=== PATIENT | male | born 1990 | race Caucasian/White ===

== ENCOUNTER 2017-07-28 21:56 | Emergency (ER) | payer SELFPAY | END 2017-07-28 22:35 | disposition home or self-care (01) | LOC: ER 22:35 | DX: S60.021A Contusion of right index finger without damage to nail, initial encounter (principal); W23.0XXA Caught, crushed, jammed, or pinched between moving objects, initial encounter; Y93.89 Activity, other specified; Y92.89 Other specified places as the place of occurrence of the external cause; Y99.8 Other external cause status | CPT/HCPCS: 29130; 73140; 99284 ==

== ENCOUNTER 2019-03-15 19:33 | Emergency (ER) | payer OTHER ==
[~2019-03-15] VITALS: Ht 175.3 cm; Wt 99.8 kg
[~2019-03-15 19:33] MED LIST: AMOX1TAB61 PO; PRED20TA PO; TRAM50TA PO
[2019-03-15 19:55] VITALS: BP 138/101
[2019-03-15] MEDS ORDERED: PRED50TA PO (20:16)
[2019-03-15] MEDS ORDERED: AMOX875T PO (20:16)
[2019-03-15] MEDS ORDERED: BENZ100C PO (20:16)
[2019-03-15] MEDS ORDERED: VENTOLIN HFA18 GM INH (20:16)
--- NOTE | 2019-03-15 20:16 | PHYS DOC ---
Past Medical History Past Medical History: No Pertinent History (JOSE ROSARIO APRN) Past Surgical History: No Surgical History (JOSE ROSARIO APRN) Alcohol Use: Occasionally Drug Use: None (JOSE ROSARIO APRN) Attending Signature I have participated in the care of this patient and I have reviewed and agree with all pertinent clinical information above including history, exam, and recommendations. (MICHELLE DA SILVA MD) Adult General Chief Complaint Chief Complaint: Congestion HPI HPI Patient is a 28 year old male with history of smoking who presents to the ED today complaining of cough and nasal congestion, symptoms began 2 weeks ago. Patient is complaining of moderate bilateral ear pain worse on the right side that began yesterday. Patient denies any fever, denies any chest pain or shortness of breath. He reports he has been trying [id number] remedies with no relief. (JOSE ROSARIO APRN) Review of Systems Review of Systems Constitutional: Denies fever or chills [] Eyes: Denies change in visual acuity, redness, or eye pain [] HENT: Reports nasal congestion and bilateral ear pain Respiratory: Reports cough, denies shortness of breath [] Cardiovascular: No additional information not addressed in HPI [] GI: Denies abdominal pain, nausea, vomiting, bloody stools or diarrhea [] : Denies dysuria or hematuria [] Musculoskeletal: Denies back pain or joint pain [] Integument: Denies rash or skin lesions [] Neurologic: Denies headache, focal weakness or sensory changes [] All other systems were reviewed and found to be within normal limits, except as documented in this note. (JOSE ROSARIO APRN) Allergies Allergies Allergies Coded Allergies Type Severity Reaction Last Updated Verified No Known Drug Allergies 10/10/13 No (MICHELLE DA SILVA MD) Physical Exam Physical Exam Constitutional: Well developed, well nourished, no acute distress, non-toxic appearance. [] HENT: Normocephalic, atraumatic, bilateral external ears normal, oropharynx moist, no oral exudates, nose normal. [] Bilateral TM are moderately injected right worse with effusion. Eyes: PERRLA, EOMI, conjunctiva normal, no discharge. [] Neck: Normal range of motion, no tenderness, supple, no stridor. [] Cardiovascular:Heart rate regular rhythm, no murmur [] Lungs & Thorax: Bilateral breath sounds clear to auscultation [] Abdomen: Bowel sounds normal, soft, no tenderness, no masses, no pulsatile masses. [] Skin: Warm, dry, no erythema, no rash. [] Back: No tenderness, no CVA tenderness. [] Extremities: No tenderness, no cyanosis, no clubbing, ROM intact, no edema. [] Neurologic: Alert and oriented X 3, normal motor function, normal sensory function, no focal deficits noted. [] Psychologic: Affect normal, judgement normal, mood normal. [] (JOSE ROSARIO APRN) Current Patient Data Vital Signs Vital Signs Date Time Temp Pulse Resp B/P (MAP) Pulse Ox O2 Delivery O2 Flow Rate FiO2 03/15/19 19:55 98.3 85 18 138/101 (113) 97 Room Air 98.3 (MICHELLE DA SILVA MD) EKG EKG [] (JOSE ROSARIO APRN) Radiology/Procedures Radiology/Procedures [] (JOSE ROSARIO APRN) Course & Med Decision Making Course & Med Decision Making Pertinent Labs and Imaging studies reviewed. (See chart for details) This is a 28-year-old male patient presented to the ED today with otitis media with effusion, bronchitis, and URI. Patient was advised to consider smoking cessation. Discharged with amoxicillin, prednisone for 5 days, Tessalon Perles, and albuterol inhaler. Follow-up with primary care doctor in 1-2 weeks. (JOSE ROSARIO APRN) Dragon Disclaimer Dragon Disclaimer This electronic medical record was generated, in whole or in part, using a voice recognition dictation system. (JOSE ROASRIO APRN) Departure Departure Impression: Primary Impression: Acute otitis media with effusion of right ear Additional Impressions: Smoking addiction URI (upper respiratory infection) Bronchitis Disposition: 01 HOME, SELF-CARE Condition: STABLE Referrals: NO PCP (PCP) follow up with your doctor next week Patient Instructions: Acute Bronchitis, [id number], Otitis Media, Adult, Smoking Cessation Additional Instructions: You were seen in the emergency room with ear infection, bronchitis and an upper respiratory infection. Use the prescribed medications as ordered. Consider smoking cessation. Follow-up with your doctor in 1-2 weeks. Scripts Amoxicillin (AMOXICILLIN) 875 Mg Tablet 1 TAB PO BID, #20 TAB Prov: MUTJOSE RUSH EFREN 03/15/19 Benzonatate (TESSALON PERLE) 100 Mg Capsule 1 CAP PO TID, #30 CAP Prov: JOSE ROSARIO EFREN 03/15/19 Prednisone (PREDNISONE) 50 Mg Tablet 1 TAB PO DAILY, #5 TAB Prov: KOKOJOSE RUSH EFREN 03/15/19 Albuterol Sulfate (VENTOLIN HFA INHALER) 18 Gm Hfa.aer.ad 2 PUFF INH Q4HRS for FOR ASTHMA, #1 INHALER 0 Refills Prov: JOSE ROSARIO EFREN 03/15/19 Problem Qualifiers Additional Impressions: URI (upper respiratory infection) URI type: unspecified URI Qualified Codes: J06.9 - Acute upper respiratory infection, unspecified JOSE ROSARIO EFREN Mar 15, 2019 20:16 MICHELLE DA SILVA MD Mar 16, 2019 04:27
== END 2019-03-15 20:30 | disposition home or self-care (01) ==
LOC: ER 19:33
DX: J40 Bronchitis, not specified as acute or chronic (principal); H65.191 Other acute nonsuppurative otitis media, right ear; F17.200 Nicotine dependence, unspecified, uncomplicated; J06.9 Acute upper respiratory infection, unspecified
CPT/HCPCS: 99283

== ENCOUNTER 2019-03-21 20:41 | Emergency (ER) | payer OTHER ==
[~2019-03-21] VITALS: Ht 175.3 cm; Wt 99.8 kg
[~2019-03-21 20:41] MED LIST changes: +AMOX875T PO; +BENZ100C PO; +PRED50TA PO; +VENTOLIN HFA18 GM INH
[2019-03-21 20:54] VITALS: BP 178/93
[2019-03-21] MEDS ORDERED: TRIA15CR2 TP (21:09)
--- NOTE | 2019-03-21 21:09 | PHYS DOC ---
Past Medical History Past Medical History: No Pertinent History (VIVIENNE,ERNESTINA Vizcarra RIDING SILKS CUSTODIAN) Past Surgical History: No Surgical History (ERNESTINA PALAFOX RIDING SILKS CUSTODIAN) Alcohol Use: Occasionally Drug Use: None (ERNESTINA PALAFOX APRN) Adult General Chief Complaint Chief Complaint: FACE PROBLEM HPI HPI Patient is a 28 year old male who presents with left sided face pain with 5 small cystic-looking pimples that are open from scratching in the sideburn area that has hair from his mary. He states he just noticed it today and decided to come in because he was afraid that it was contagious 2 children. (VIVIENNE,ERNESTINA Vizcarra RIDING SILKS CUSTODIAN) Review of Systems Review of Systems Integument: facial rash or skin lesions [] All other systems were reviewed and found to be within normal limits, except as documented in this note. (ERNESTINA PALAFOX RIDING SILKS CUSTODIAN) Allergies Allergies Allergies Coded Allergies Type Severity Reaction Last Updated Verified No Known Drug Allergies 10/10/13 No (GLENDY CLIFTON DO) Physical Exam Physical Exam Constitutional: Well developed, well nourished, no acute distress, non-toxic appearance. [] HENT: Normocephalic, atraumatic, bilateral external ears normal, oropharynx moist, no oral exudates, nose normal. [] Eyes: PERRLA, EOMI, conjunctiva normal, no discharge. [] Neck: Normal range of motion, no tenderness, supple, no stridor. [] Cardiovascular:Heart rate regular rhythm, no murmur [] Lungs & Thorax: Bilateral breath sounds clear to auscultation [] Abdomen: Bowel sounds normal, soft, no tenderness, no masses, no pulsatile masses. [] Skin: Warm, dry, no erythema, no rash. Left facial cystic type lesion.[] Back: No tenderness, no CVA tenderness. [] Extremities: No tenderness, no cyanosis, no clubbing, ROM intact, no edema. [] Neurologic: Alert and oriented X 3, normal motor function, normal sensory function, no focal deficits noted. [] Psychologic: Affect normal, judgement normal, mood normal. [] (VIVIENNE,ERNESTINA Vizcarra [employer] CUSTODIAN) Current Patient Data Vital Signs Vital Signs Date Time Temp Pulse Resp B/P (MAP) Pulse Ox O2 Delivery O2 Flow Rate FiO2 03/21/19 20:54 98.0 88 18 178/93 (121) 97 Room Air 98.0 (GLENDY CLIFTON DO) EKG EKG [] (ERNESTINA PALAFOX APRN) Radiology/Procedures Radiology/Procedures [] (ERNESTINA PALAFOX APRN) Course & Med Decision Making Course & Med Decision Making He states he's been scratching over them a lot. Patient states that now when you push over them it's slightly tender. There are no blisters. There is no drainage. Looks to be small pea sized to less than pea sized cystic-type pimples. Alert and oriented. Skin pink warm and dry. Afebrile. Patient states he just got off prednisone. Patient is still taking amoxicillin and Tessalon Perles for his upper respiratory infection and otitis media. Patient denies any dizziness or nausea and vomiting. Patient is told to try to stop itching over the area. Patient states he is always itchy in that area on both sides of his face due to his mary. (ERNESTINA PALAFOX APRN) Dragon Disclaimer Dragon Disclaimer This electronic medical record was generated, in whole or in part, using a voice recognition dictation system. (ERNESTINA PALAFOX APRN) Departure Departure Impression: Primary Impression: Rash of face Disposition: 01 HOME, SELF-CARE Condition: STABLE Referrals: NO PCP (PCP) Patient Instructions: Rash Additional Instructions: Follow up with primary care if needed. Try not to itch the area. Scripts Triamcinolone Acetonide (TRIAMCINOLONE ACETONIDE 0.025% CREAM) 15 Gm Cream..g. 1 JASON TP BID, #15 GM Prov: ERNESTINA PALAFOX APRN 03/21/19 Attending Signature Attending Signature I have reviewed the PA/KNOCKUP WORKER's note and plan of care. I was available for consultation as needed during the patient's visit in the emergency department. I agree with the clinical impression, plan, and disposition. (GLENDY CLIFTON DO) ERNESTINA PALAFOX APRN Mar 21, 2019 21:09 GLENDY CLIFTON DO Mar 21, 2019 22:09
[2019-03-22] MEDS ORDERED: ACYC800T PO (23:26)
== END 2019-03-21 21:22 | disposition home or self-care (01) ==
LOC: ER 20:41
DX: R21 Rash and other nonspecific skin eruption (principal)
CPT/HCPCS: 99283

== ENCOUNTER 2019-03-22 15:30 | Emergency (ER) | payer OTHER ==
[~2019-03-22] VITALS: Ht 175.3 cm; Wt 99.8 kg
[~2019-03-22 15:30] MED LIST changes: +TRIA15CR2 TP
[2019-03-22 16:02] VITALS: BP 151/88
--- NOTE | 2019-03-22 17:18 | RAD ---
CT scan of the neck without contrast 03/22/2019 CLINICAL HISTORY: Left-sided neck pain with left facial swelling. TECHNIQUE: Unenhanced, contiguous, 3 mm axial sections were obtained through the neck. One or more of the following individualized dose reduction techniques were utilized for this study: 1. Automated exposure control. 2. Adjustment of the mA and/or kV according to patient size. 3. Use of iterative reconstruction technique. FINDINGS: The mucosal structures of the nasopharynx, oropharynx, hypopharynx and larynx are within normal limits. The parotid and submandibular glands are within normal limits. The thyroid gland is within normal limits. No abnormal fluid collection is seen to suggest evidence of an abscess. Slightly prominent likely reactive cervical lymph nodes are seen scattered throughout the left neck. These measure 5 mm to 1.1 cm in size. Multiple caries are seen scattered throughout the teeth. The osseous structures are grossly intact. IMPRESSION: No abscess is seen. Electronically signed by: Erki Casas MD (03/22/2019 5:16 PM) [facility]
--- NOTE | 2019-03-22 21:18 | PHYS DOC ---
Past Medical History Past Medical History: No Pertinent History (JE RITCHIE APRN) Past Surgical History: No Surgical History (JE RITCHIE APRN) Alcohol Use: Rarely Drug Use: None (JE RITCHIE APRN) Adult General Chief Complaint Chief Complaint: OTHER COMPLAINTS HPI HPI Patient is a 28 year old male who presents to the emergency department with complaints of left-sided facial and neck pain that is worsening. He was seen here a week ago and given antibiotics and steroids for an ear infection. Patient states that he was here again yesterday and prescribed triamcinolone cream by the nurse practitioner for a rash on the left side of his face. Pt states at this time it hurts to move his neck. He denies any fever, ear pain, cough, congestion, or sore throat. He denies any shortness of breath, itching, or cough. Pt reports a hx of dental caries but denies any dental pain. Currently, he rates his discomfort an 8/10 on the pain scale, there are no alleviating factors, his neck pain increases with movement and the facial pain increases with palpation. All other ROS is neg unless otherwise noted in HPI. (JE RITCHIE APRN) Review of Systems Review of Systems See Above (JE RITCHIE APRN) Allergies Allergies Allergies Coded Allergies Type Severity Reaction Last Updated Verified No Known Drug Allergies 10/10/13 No (MICHELLE DA SILVA MD) Physical Exam Physical Exam See Above Constitutional: Well developed, well nourished, no acute distress, non-toxic appearance, obese HENT: Normocephalic, atraumatic, bilateral external ears normal, bilateral TMs normal, posterior pharynx normal, oropharynx moist, no oral exudates, nose normal; Left upper gingival erythema and edema with large amount of plaque noted to teeth and large amount of dental decay noted. Eyes: PERRLA, EOMI, conjunctiva normal, no discharge. [] Neck: Normal range of motion, supple, no stridor; left lateral neck tenderness to palpation [] Cardiovascular:Heart rate regular rhythm Lungs & Thorax: Bilateral breath sounds clear to auscultation [] Skin: Warm, dry, mild swelling and erythema to left side of face Extremities: No cyanosis, ROM intact, no edema. [] Neurologic: Alert and oriented X 3, no focal deficits noted. [] Psychologic: Affect normal, judgement normal, mood normal. [] (JE RITCHIE APRN) Current Patient Data Vital Signs Vital Signs Date Time Temp Pulse Resp B/P (MAP) Pulse Ox O2 Delivery O2 Flow Rate FiO2 03/22/19 16:02 98.2 104 16 151/88 (109) 97 Room Air 98.2 (MICHELLE DA SILVA MD) EKG EKG [] (JE RITCHIE APRN) Radiology/Procedures Radiology/Procedures PROCEDURE: CT SOFT TISSUE NECK WO CONTRST CT scan of the neck without contrast 03/22/2019 CLINICAL HISTORY: Left-sided neck pain with left facial swelling. TECHNIQUE: Unenhanced, contiguous, 3 mm axial sections were obtained through the neck. One or more of the following individualized dose reduction techniques were utilized for this study: 1. Automated exposure control. 2. Adjustment of the mA and/or kV according to patient size. 3. Use of iterative reconstruction technique. FINDINGS: The mucosal structures of the nasopharynx, oropharynx, hypopharynx and larynx are within normal limits. The parotid and submandibular glands are within normal limits. The thyroid gland is within normal limits. No abnormal fluid collection is seen to suggest evidence of an abscess. Slightly prominent likely reactive cervical lymph nodes are seen scattered throughout the left neck. These measure 5 mm to 1.1 cm in size. Multiple caries are seen scattered throughout the teeth. The osseous structures are grossly intact. IMPRESSION: No abscess is seen.[] (JE RITCHIE APRN) Course & Med Decision Making Course & Med Decision Making Pertinent Labs and Imaging studies reviewed. (See chart for details) Pt reported a family emergency to nursing staff and left the ER AMA. [] (JE RITCHIE APRN) Dragon Disclaimer Dragon Disclaimer This electronic medical record was generated, in whole or in part, using a voice recognition dictation system. (JE RITCHIE APRN) Attending Signature I have participated in the care of this patient and I have reviewed and agree with all pertinent clinical information above including history, exam, and recommendations. (MICHELLE DA SILVA MD) Departure Departure Impression: Primary Impression: Left against medical advice Disposition: 07 AGAINST MEDICAL ADVICE Condition: LEFT WITHOUT BEING SEEN Referrals: UNKNOWN PCP NAME (PCP) JE RITCHIE APRN Mar 22, 2019 21:18 MICHELLE DA SILVA MD Mar 23, 2019 19:04
[2019-03-22] MEDS ORDERED: ACYC800T PO (23:26)
== END 2019-03-22 16:59 | disposition left against medical advice (07) ==
LOC: ER 15:30
DX: M54.2 Cervicalgia (principal); R51 Headache
CPT/HCPCS: 70490; 99284-25

== ENCOUNTER 2019-03-22 22:33 | Emergency (ER) | payer OTHER ==
[~2019-03-22] VITALS: Ht 175.3 cm; Wt 99.8 kg
[2019-03-22 22:37] VITALS: BP 149/84
[2019-03-22] MEDS ORDERED: ACYC800T PO (23:26)
--- NOTE | 2019-03-22 23:26 | PHYS DOC ---
Past Medical History Past Medical History: No Pertinent History Past Surgical History: No Surgical History Alcohol Use: Rarely Drug Use: None Adult General Chief Complaint Chief Complaint: Neck Pain HPI HPI Patient is a 28 year old [f__sex] who presents with [] Review of Systems Review of Systems Constitutional: Denies fever or chills [] Eyes: Denies change in visual acuity, redness, or eye pain [] HENT: Denies nasal congestion or sore throat [] Respiratory: Denies cough or shortness of breath [] Cardiovascular: No additional information not addressed in HPI [] GI: Denies abdominal pain, nausea, vomiting, bloody stools or diarrhea [] : Denies dysuria or hematuria [] Musculoskeletal: Denies back pain or joint pain [] Integument: Denies rash or skin lesions [] Neurologic: Denies headache, focal weakness or sensory changes [] Endocrine: Denies polyuria or polydipsia [] All other systems were reviewed and found to be within normal limits, except as documented in this note. Allergies Allergies Allergies Coded Allergies Type Severity Reaction Last Updated Verified No Known Drug Allergies 10/10/13 No Physical Exam Physical Exam Constitutional: Well developed, well nourished, no acute distress, non-toxic kendra earance. [] HENT: Normocephalic, atraumatic, bilateral external ears normal, oropharynx moist, no oral exudates, nose normal. [] Eyes: PERRLA, EOMI, conjunctiva normal, no discharge. [] Neck: Normal range of motion, no tenderness, supple, no stridor. [] Cardiovascular:Heart rate regular rhythm, no murmur [] Lungs & Thorax: Bilateral breath sounds clear to auscultation [] Abdomen: Bowel sounds normal, soft, no tenderness, no masses, no pulsatile masses. [] Skin: Warm, dry, no erythema, no rash. [] Back: No tenderness, no CVA tenderness. [] Extremities: No tenderness, no cyanosis, no clubbing, ROM intact, no edema. [] Neurologic: Alert and oriented X 3, normal motor function, normal sensory function, no focal deficits noted. [] Psychologic: Affect normal, judgement normal, mood normal. [] Current Patient Data Vital Signs Vital Signs Date Time Temp Pulse Resp B/P (MAP) Pulse Ox O2 Delivery O2 Flow Rate FiO2 03/22/19 22:37 97.7 126 16 149/84 (105) 97 Room Air 97.7 EKG EKG [] Radiology/Procedures Radiology/Procedures [] Course & Med Decision Making Course & Med Decision Making Pertinent Labs and Imaging studies reviewed. (See chart for details) [] Dragon Disclaimer Dragon Disclaimer This electronic medical record was generated, in whole or in part, using a voice recognition dictation system. Departure Departure Impression: Primary Impression: Shingles Additional Impression: Neck pain Disposition: HOME, SELF-CARE Condition: STABLE Referrals: NO PCP (PCP) Patient Instructions: Shingles, [id number] Scripts Acyclovir (ACYCLOVIR) 800 Mg Tablet 1 TAB PO 5XDAY for 7 Days, #35 TAB Prov: GLENDY CLIFTON DO 03/22/19 Problem Qualifiers Primary Impression: Shingles Herpes zoster complications: without complications Qualified Codes: B02.9 - Zoster without complications GLENDY CLIFTON DO Mar 22, 2019 23:26
[2019-03-22] MEDS ORDERED: ACYCLOVIR 200 MG CAPSULE. PO ONE (23:30)
== END 2019-03-22 23:42 | disposition home or self-care (01) ==
LOC: ER 22:33
DX: M54.2 Cervicalgia (principal); B02.9 Zoster without complications
CPT/HCPCS: 99283